=== PATIENT | female | born 1965 | race Caucasian/White ===

== ENCOUNTER → 2017-04-27 | Day surgery (SDC) | payer OTHER ==
--- NOTE | 2017-04-19 16:54 | MH ---
cc: ORTEGA MORFIN MD DATE OF 1965 DATE OF ADMISSION 04/27/2017 REASON FOR ADMISSION For anterior posterior repair. HISTORY OF THE PRESENT ILLNESS The patient is a 51-year-old white female 3, para 3 who has issues with pelvic organ prolapse anterior and posterior compartments. Mainly has pressure and discomfort, severity 7/10, occurs daily. Pressure and bulging sensation are the most problematic issues for her. After discussing options she wants to proceed with surgery. PAST MEDICAL HISTORY The patient's medical history is negative for heart, lung, liver disease, hypertension, diabetes or stroke. PAST SURGICAL HISTORY Noncontributory. OBSTETRICAL HISTORY Three vaginal deliveries, largest baby 10 pounds. GYNECOLOGIC HISTORY No STDs or abnormal Pap smears. SOCIAL HISTORY Does not smoke, or drugs. . Good social support. ALLERGIES MORPHINE CAUSES NAUSEA. REVIEW OF SYSTEMS As above. No chest pain, orthopnea, PND. No nausea, vomiting, fever, chills. No vaginal bleeding or discharge. No stress incontinence. Remainder of 14-point review negative. PHYSICAL EXAMINATION VITAL SIGNS: She is afebrile. Vital signs stable. Blood pressure is 150/90, weight is 200 pounds. Height is 5 feet 7 inches. BMI is 31.4. GENERAL: Patient is alert and oriented in no acute stress. No sign of cognitive dysfunction or depression. HEENT: Within normal limits. NECK: Supple. No JVD. CHEST: Clear. HEART: Regular rate and rhythm. ABDOMEN: Soft and nontender. No hepatosplenomegaly. No CVA tenderness. PELVIC: Examination in the office shows POP-Q score Aa is 0, Ap is -1. Point C is -6. Genital hiatus is 8. Perineal body is 2. Total vaginal length is 10. Levator strength is 3/5. Sacral nerve reflexes are absent on the left side. Further examination under anesthesia, there is no significant post void residual. Hypermobility of the urethra noted 30 degrees from horizontal. EXTREMITIES: Normal. SKIN: Without rashes. NEUROLOGIC: Nonfocal. No DVT signs. ASSESSMENT Patient with stage II pelvic organ prolapse anterior posterior compartment. We discussed options for management and treatment. She wants to proceed with surgery. She is aware of the risks, benefits and alternatives to the planned procedure including damage to surrounding organs, bleeding, infection, failure of repair, dyspareunia, bladder dysfunction, damage to bladder and bowel. The recurrence risk is also discussed. At this point she has made informed choice to proceed. We will use DVT prophylaxis with sequential compression device and antibiotic prophylaxis Ancef 2 grams. Anticipate outpatient procedure. MD LEIGH Klein/KK /4:37 PM /4:41 PM
[~2017-04-27] VITALS: Ht 167.6 cm; Wt 95.7 kg
[~2017-04-27] MED LIST: ACETAMINOPHEN 1000 MG/100 ML VIAL IV ONE; CHLORHEXIDINE GLUCONATE 2 % 1 PACK (2 CLOTHS) TOPICAL PRN; DO NOT ADM ANY ANTICOAGULANT DRUGS PRN; ESTROGENS CONJUGATED VAG CREA 15 APPL/30 GM TUBE ONE; FLUORESCEIN SOD 10% SOLN 500 MG/5 ML AMP IV ONE; FLUORESCEIN SOD 10% SOLN 500 MG/5 ML AMP ONE; INSULIN HUMAN REGULAR 1,000 UNITS/10 ML VIAL SQ PRN; KETOROLAC TROMETHAMINE 30 MG/ML (IVP) VIAL IM PRN; KETOROLAC TROMETHAMINE 30 MG/ML (IVP) VIAL ONE; KETOROLAC TROMETHAMINE 60 MG/2 ML (IM) VIAL IM ONE; LACTATED RINGER'S 1000 ML INJ 1,000 ML IV ONE; LACTATED RINGER'S 1000 ML IV PRN; LIDOCAINE 1%/EPINEPHrine 1:100,000 SOLN 20 ML VIAL ONE; LIDOCAINE 1%/EPINEPHrine 1:100,000 SOLN 30 ML VIAL INFIL ONE; LISI-519 PO; METHYLENE BLUE 10 MG/ML VIAL OTHER ONE; METOPROLOL TARTRATE 25 MG TAB PO PRN; MIDAZOLAM HCL 2 MG/2 ML VIAL ONE; ONDANSETRON HCL 4 MG/2 ML VIAL IV PUSH ONE; ONDANSETRON HCL 4 MG/2 ML VIAL IV PUSH PRN; POVIDONE IODINE 5% (ANTISEPSIS KIT) 4 APPLICATIONS EACH NARE PRN; PROPOFOL 200 MG/20 ML AMP IV ONE; SODIUM CHLORID 0.9% 500 ML IV PRN; ceFAZolin 2 GM PREMIX 50 ML IV SCH; ePHEDrine/NS 25 MG/5 ML SYR IV ONE; traMADol HCL 50 MG TAB PO PRN
[2017-04-27 06:50] VITALS: BP 146/95; PULSE 72; RESP 16; TEMP 98.3; O2SAT 98
[2017-04-27 11:45] VITALS: BP 130/86; PULSE 88; RESP 20; TEMP 98.5; O2SAT 99
--- NOTE | 2017-04-29 09:01 | MP ---
cc: ORTEGA MORFIN MD DATE OF SURGERY 04/27/2017 PREOPERATIVE DIAGNOSES Pelvic organ prolapse anterior/posterior compartment POSTOPERATIVE DIAGNOSIS Pelvic organ prolapse anterior/posterior compartment with element of uterine prolapse. PROCEDURE 1. Anterior/posterior repair with extraperitoneal hysteropexy 2. Diagnostic cystoscopy SURGEON Ortega Morfin MD ANESTHESIA General endotracheal [facility] [place] staff x2 FLUIDS 1000 cc crystalloid BLOOD LOSS 50 cc URINE OUTPUT 200 cc FINDINGS External genitalia. POP-Q score: Aa is +3, Ap is +1. Point C is -2. Total vaginal length is 10. Genital hiatus is 8. Perineal body is 2. Following repair POP-Q score: Aa is -3, Ap is -3. Point C is -8. Total vaginal length is 10. Genital hiatus is 6. Perineal body is 4. Cystoscopy after repair shows normal trigone, good coaptation of urethra. Ureteral orifices patent x2. Dome and base of bladder normal. Pelvic exam under anesthesia shows uterus slightly retroverted, normal size. No adnexal mass. SPECIMENS Vaginal mucosa trimmed but not sent. COMPLICATIONS None DISPOSITION To recovery room stable. COUNTS Needle and sponge counts correct. DRAINS Lowe catheter ANTIBIOTIC PROPHYLAXIS Ancef 2 grams DVT PROPHYLAXIS Sequential compression device. TIME OUT PROCEDURE Per protocol SUMMARY OF INDICATIONS FOR THE PROCEDURE Patient with symptomatic pelvic organ prolapse anterior/posterior compartment. PROCEDURE The patient was taken to the operating room theater, identified, prepped and draped in a fashion appropriate for the planned procedure. She was in the dorsal lithotomy position with careful attention paid to placement of legs in stirrups to avoid undue stress to sensitive neurovascular structures. The above findings noted. Neurovascular integrity documented. Lowe catheter was placed. Methylene blue was instilled into the bladder Under anesthesia, she had significantly more anterior compartment prolapse than we appreciated in the office. It was the most striking defect in the pelvis. We worked on this first. We infiltrated epinephrine lidocaine solution, made a midline incision from the cervix to approximately 1 cm from the urethral meatus, reflected the paravesical tissues. There was no spill of methylene blue. Colporrhaphy was performed in standard fashion with delayed absorbable suture. The vaginal mucosa was trimmed and closed with a continuous running locking suture. Cystoscopy was performed using a 17-English bridge, a 70 degrees scope. The patient received 1 cc of fluorescein IV. We ureteral patency x2. No sign of any complication or intrusion of suture into the bladder of the urethra. Patient still has significant posterior defect and some degree of uterine prolapse. Posterior repair was performed in standard fashion. We made a midline incision after infiltrating with epinephrine/lidocaine solution, took this incision from the hymenal ring to the apex of the vaginal cervical junction, reflected the perirectal tissues, encountered enterocele which was reduced with delayed absorbable suture. Rectocele repair performed in standard fashion. Extraperitoneal hysteropexy performed to elevate the cervix. I decided not to perform a sacrospinous ligament fixation in this setting. The vaginal mucosa was trimmed. The vaginal mucosa was closed with good result. We used hemostatic matrix both anterior and posterior for hemostasis and to avoid need for packing. The procedure was concluded. Rectal exam was normal following repair. Pop-Q scores are noted above. Suture line was intact and hemostatic. MD LEIGH Klein/GIULIA /10:14 AM /8:45 AM
== END | disposition home or self-care (01) ==
LOC: HSDC 05:53
PROVIDERS: ATTEND Obstetrics & Gynecology Gynecology
DX: N81.89 Other female genital prolapse (principal); N81.4 Uterovaginal prolapse, unspecified; I10 Essential (primary) hypertension
CPT/HCPCS: 00942; 57260; J0131; J0690; J1885; J2250; J2405; J3010; J7120

== ENCOUNTER 2018-03-09 13:21 | Emergency (ER) | payer OTHER ==
[~2018-03-09] VITALS: Ht 167.6 cm; Wt 92.0 kg
[~2018-03-09 13:21] MED LIST changes: -ACETAMINOPHEN 1000 MG/100 ML VIAL IV ONE; -CHLORHEXIDINE GLUCONATE 2 % 1 PACK (2 CLOTHS) TOPICAL PRN; -DO NOT ADM ANY ANTICOAGULANT DRUGS PRN; -ESTROGENS CONJUGATED VAG CREA 15 APPL/30 GM TUBE ONE; -FLUORESCEIN SOD 10% SOLN 500 MG/5 ML AMP IV ONE; -FLUORESCEIN SOD 10% SOLN 500 MG/5 ML AMP ONE; -INSULIN HUMAN REGULAR 1,000 UNITS/10 ML VIAL SQ PRN; -KETOROLAC TROMETHAMINE 30 MG/ML (IVP) VIAL IM PRN; -KETOROLAC TROMETHAMINE 30 MG/ML (IVP) VIAL ONE; -KETOROLAC TROMETHAMINE 60 MG/2 ML (IM) VIAL IM ONE; -LACTATED RINGER'S 1000 ML INJ 1,000 ML IV ONE; -LACTATED RINGER'S 1000 ML IV PRN; -LIDOCAINE 1%/EPINEPHrine 1:100,000 SOLN 20 ML VIAL ONE; -LIDOCAINE 1%/EPINEPHrine 1:100,000 SOLN 30 ML VIAL INFIL ONE; -METHYLENE BLUE 10 MG/ML VIAL OTHER ONE; -METOPROLOL TARTRATE 25 MG TAB PO PRN; -MIDAZOLAM HCL 2 MG/2 ML VIAL ONE; -ONDANSETRON HCL 4 MG/2 ML VIAL IV PUSH ONE; -ONDANSETRON HCL 4 MG/2 ML VIAL IV PUSH PRN; -POVIDONE IODINE 5% (ANTISEPSIS KIT) 4 APPLICATIONS EACH NARE PRN; -PROPOFOL 200 MG/20 ML AMP IV ONE; -SODIUM CHLORID 0.9% 500 ML IV PRN; -ceFAZolin 2 GM PREMIX 50 ML IV SCH; -ePHEDrine/NS 25 MG/5 ML SYR IV ONE; -traMADol HCL 50 MG TAB PO PRN
[2018-03-09 13:25] VITALS: BP 163/93; PULSE 89; RESP 18; TEMP 99.7; O2SAT 98
--- NOTE | 2018-03-09 16:26 | PD ---
HPI Chief Complaint: Cold / Flu Symptoms Time Seen by Provider: 16:18 Travel History International Travel<30 days: No Contact w/Intl Traveler<30days: No Traveled to known affect area: No History of Present Illness HPI 43-year-old female presents emergency department with over a month of ongoing cough, and chest congestion. Patient states he was treated about a month ago with amoxicillin without any real improvement. Patient denies productive cough, headache, sinus drainage, sore throat, ear pain, fever, chills , or other constitutional symptoms. She does state a history of frequent heartburn and reflux treated with deru-sto-kathdxh ranitidine. She states currently she has difficulty eating secondary to her cough causing her to cough to the point of vomiting. Her cough does not seem to be productive. She denies chest pain. Abdominal pain. Or diarrhea. She is allergic to morphine. Further questioning reveals the patient does occasionally get food stuck in her throat, which has been occurring for several months. She has no history of endoscopy in the past. [facility] Past Medical History Cancer: No Cardiovascular Problems: No Diabetes: No Diminished Hearing: No Genitourinary: No Hepatitis: No Hiatal Hernia: No Immune Disorder: No Musculoskeletal: No Neurologic: No Psychiatric: No Reproductive: No Respiratory: No Thyroid Disease: No ?: Not Past Surgical History Abdominal Surgery: Yes (HERNIA REPAIR) Body Medical Devices: MESH Joint Replacement: No Pacemaker: No Social History Alcohol Use: No Tobacco Use: No Substance Use: No Allergies-Medications (Allergen,Severity, Reaction): Coded Allergies: morphine (Unverified Adverse Reaction, Severe, 03/09/18) Reported Meds & Prescriptions Reported Meds & Active Scripts Active Omeprazole 40 Mg Cap 40 Mg PO DAILY Ventolin Hfa 18 GM Inh (Albuterol Sulfate) 90 Mcg/Act Aer 2 Puff INH Q4-6H PRN Azithromycin 500 Mg Tab 500 Mg PO DAILY Reported Lisinopril 5 Mg Tab 5 Mg PO DAILY Physical Exam Narrative GENERAL: Patient appears in no acute distress. SKIN: Warm and dry. HEAD: Atraumatic. Normocephalic. EYES: Pupils equal and round. No scleral icterus. No injection or drainage. ENT: No nasal bleeding or discharge. Mucous membranes pink and moist. TMs are clear. No sinus tenderness to palpation. Pharynx is clear. Airways patent NECK: Trachea midline. Supple and nontender per CARDIOVASCULAR: Regular rate and rhythm. RESPIRATORY: No accessory muscle use. Mild rhonchi in the left lower lung field not completely cleared with cough to auscultation. Breath sounds equal bilaterally. GASTROINTESTINAL: Abdomen soft, non-tender, nondistended. Hepatic and splenic margins not palpable. MUSCULOSKELETAL: Extremities without clubbing, cyanosis, or edema. No obvious deformities. NEUROLOGICAL: Awake and alert. No obvious cranial nerve deficits. Motor grossly within normal limits. Five out of 5 muscle strength in the arms and legs. Normal speech. PSYCHIATRIC: Appropriate mood and affect; insight and judgment normal. Data Data Last Documented VS Vital Signs Date Time Temp Pulse Resp B/P (MAP) Pulse Ox O2 Delivery O2 Flow Rate FiO2 03/09/18 16:59 100 21 03/09/18 13:25 99.7 89 18 163/93 (116) Orders Orders Chest, Pa & Lat (03/09/18 16:24) Albuterol-Ipratropium Neb (Duoneb Neb) (03/09/18 16:30) Sodium Chloride 0.9% Flush (Ns Flush) (03/09/18 16:30) MDM Medical Decision Making Medical Screen Exam Complete: Yes Emergency Medical Condition: Yes Differential Diagnosis Chronic bronchitis. Reflux induced bronchitis. Chronic esophageal reflux. Esophageal stricture. Narrative Course Patient is medically stable at time of exam. Chest x-ray is ordered. DuoNeb is ordered. Chest x-ray shows no acute process per radiologist. Patient felt somewhat symptomatically improved after her DuoNeb I feel the patient's symptoms are more likely due to her chronic reflux, then a bacterial bronchitis. Patient will however be covered with azithromycin 500 mg daily for the next 5 days. Patient also given albuterol metered-dose inhaler 2 puffs every 4-6 hours as needed cough and wheeze. Patient is started on omeprazole 40 mg daily for the next 30 days. Recommend patient follow-up with a runner on considering her symptoms of reflux and possible esophageal stricture. Patient can return if symptoms warrant. Diagnosis Primary Impression: Chronic bronchitis Qualified Codes: J41.0 - Simple chronic bronchitis Additional Impression: Gastroesophageal reflux disease Qualified Codes: K21.9 - Gastro-esophageal reflux disease without esophagitis Referrals: Negra Hodge MD Patient Instructions: Diet for Stomach Ulcers and Gastritis (ED), General Instructions Additional Instructions: Chest x-ray shows no acute process per radiologist. Patient felt somewhat symptomatically improved after her DuoNeb I feel the patient's symptoms are more likely due to her chronic reflux, then a bacterial bronchitis. Patient will however be covered with azithromycin 500 mg daily for the next 5 days. Patient also given albuterol metered-dose inhaler 2 puffs every 4-6 hours as needed cough and wheeze. Patient is started on omeprazole 40 mg daily for the next 30 days. Recommend patient follow-up with a runner on considering her symptoms of reflux and possible esophageal stricture. Patient can return if symptoms warrant. Med/Other Pt SpecificInfo: Prescription(s) given Scripts Omeprazole (Omeprazole) 40 Mg Cap 40 MG PO DAILY, #30 CAP 0 Refills Prov: Jourdan Trujillo MD 03/09/18 Albuterol 18 GM Inh (Ventolin Hfa 18 GM Inh) 90 Mcg/Act Aer 2 PUFF INH Q4-6H Y for SHORTNESS OF BREATH, #1 INHALER 0 Refills Prov: Jourdan Trujillo MD 03/09/18 Azithromycin (Azithromycin) 500 Mg Tab 500 MG PO DAILY for Infection, #5 TAB 0 Refills Prov: Jourdan Trujillo MD 03/09/18 Disposition: 01 DISCHARGE HOME Condition: Stable Arjun Bose Mar 09, 2018 16:26
[2018-03-09] MEDS ORDERED: RESP: ALBUTEROL 2.5 MG/IPRATROPIUM 0.5 MG NEB (SCH) INH ONE (16:30)
[2018-03-09] MEDS ORDERED: SODIUM CHLORIDE 0.9% FLUSH 10 ML FLUSH IVF PRN (16:30)
[2018-03-09 16:59] VITALS: O2SAT 100
--- NOTE | 2018-03-09 17:02 | RADRPT ---
EXAM DATE: 03/09/2018 4:52 PM EDT AGE/SEX: 52 years / Female INDICATIONS: Cough. Congestion. CLINICAL DATA: This is the patient's initial encounter. Patient reports that signs and symptoms have been present for 2 weeks and indicates a pain score of 5/10. MEDICAL/SURGICAL HISTORY: None. None. COMPARISON: No prior exams available for comparison. FINDINGS: PA and lateral views of the chest demonstrate the lungs to be symmetrically aerated without evidence of mass, infiltrate or effusion. The cardiomediastinal contours are unremarkable. Osseous structures are intact. CONCLUSION: Negative examination. Electronically signed by: Cholo Davis MD 03/09/2018 5:01 PM EDT
[2018-03-09] MEDS ORDERED: VENTAER INH (17:26)
[2018-03-09] MEDS ORDERED: OMEP40CA2 PO (17:26)
[2018-03-09] MEDS ORDERED: AZIT500T2 PO (17:26)
== END 2018-03-09 18:32 | disposition home or self-care (01) ==
LOC: NEPD 13:21
DX: J42 Unspecified chronic bronchitis (principal); K21.9 Gastro-esophageal reflux disease without esophagitis; Z79.51 Long term (current) use of inhaled steroids; Z79.899 Other long term (current) drug therapy; Z88.5 Allergy status to narcotic agent
CPT/HCPCS: 71046; 94664; 99283